=== PATIENT | female | born 1980 | race Caucasian/White ===

== ENCOUNTER 2022-02-21 01:31 | Day surgery (SDC) | payer BC, SELFPAY ==
--- NOTE | 2022-02-14 08:53 | PC.NURSE ---
Report to the Outpatient Waiting Room, entrance under the green pavilion located off [facility], at time _0600 on date __02/21/22 . OR Time: __729 . - You and your visitor will be asked a series of questions to screen for COVID 19 for your protection. - A mask is required within the hospital. Preoperative COVID Testing Requirements: No COVID Test needed if: (proof is required; if not received patient will have Rapid Test prior to entry) - Patient has received COVID Vaccine at least 14 days prior to procedure date or - Patient has positive COVID test result within last 90 days of surgery date. COVID Test needed if above criteria is not met If not COVID vaccinated a COVID test must be conducted within 72 hours of surgery and patient is asked to isolate self from time of testing until procedure. You will go to the [facility] for your COVID testing. The [facility] is located at the corner of [address] [facility]. You will only be called if COVID results are positive and your surgeon may reschedule your elective surgery date. Patients may have clear liquids (water, carbonated beverages, clear teas, apple juice) until 3 hours prior to surgery with a maximum of 20 ounces. - No food from midnight until time of surgery - Infants may have breast milk until 4 hours before surgery, formula 6 hours prior to surgery. - Children will be allowed to drink immediately following surgery. If applicable, please bring a bottle or sippy cup to assist with drinking. Juice, water, soda, and popsicles are readily available. For infants on formula, please bring formula the day of surgery. Pacifiers are allowed. Take the following medications with a SIP of water the morning of surgery: ___INHALER IF NEEDED Medications to discontinue per physician ___MULTI VITAMIN 3 DAYS PRE OP Date to take last dose____02/17/22 Please no make-up, nail cymraes, hairspray, perfume, deodorant, or body powder the day of surgery. No jewelry (including any body piercings) or valuables the day of surgery, leave them at home. Please take a shower or bath the night before, or the morning of, surgery with an antibacterial soap. Wear comfortable, loose fitting clothing. Children are encouraged to wear pajamas. - Jewelry must be removed prior to entering the operating room. Rings and piercings that are not removed may be cut off. - The hospital will not accept responsibility for valuables. - Please leave all valuables, including medications, at home the day of surgery. If you are going home after surgery, a licensed deliver driver must drive you home. - NO public transportation without another adult. - We recommend that an adult stay with you for 24 hours following discharge. - We also recommend that you do not drive, make important decision, drink alcoholic beverages, or take any drugs that were not prescribed by your health care provider for at least 24 hours after your discharge time. For Pediatric surgeries, we recommend two adults accompany the child home (only one inside the building at this time). One visitor will be allowed to accompany the patient into the hospital. Patients visitor will be instructed to remain with patient at all times or leave the building. We will allow the visitor to come back to the postoperative area when patient is ready. Follow any additional instructions given to you from your surgeon. Telephone instructions given to _PATIENT and asked if any additional questions and then verbalized understanding. Patient advised to call surgeon office or pre surgery nurse liaison [phone] if any additional questions.
[2022-02-14 08:54] VITALS: BMI 22.0
--- NOTE | 2022-02-20 13:58 | PM.IMHP ---
H&P: HPI History of Present Illness Date/Time: 02/20/22 13:58 42-year-old female 5 para 4014 presents for permanent sterilization as well as evaluation and treatment for heavy menstrual cycles. States her cycles are monthly 5-7 days in length 3-5 days heavy with clotting cramping significant discomfort during this time as well. No significant discomfort or concerns other than which she is on her menstrual cycle. Also desires permanent sterilization the form bilateral salpingectomy. We have discussed permanence failure rate increased risk of ectopic and regret patient states good understanding and strongly desires to proceed. Chief Complaint: heavy vaginal bleeding Review of Systems Review of Systems: All systems reviewed & are unremarkable except as noted in HPI and below PMFSH Past Medical History Medical History Anemia Asthma Calcification of right breast on mammography Screening mammogram, encounter for Surgical History Surgical History History of hysteroscopy D&C on 10/24/15 History of nasal surgery (~09/17/21) broken nose Family History Family History Grandparent Diabetes mellitus maternal grandmother Family history of glaucoma Hypertension paternal grandfather Family history of lung cancer, Onset Age: 60 Lung cancer maternal grandfather Sibling Family history of mental disorder Social History Social History Smoking status: Never smoker Alcohol intake: never Substance use: never Substance use type: does not use Living arrangements: with family Additional living arrangements comments: spouse 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 Gender identity (if verbalized by the patient): Female Sexual Orientation (if Verbalized by the Patient): Straight or Heterosexual Spiritual care concerns: No Meds Home Medications and Allergies Home Medications Medication Instructions Recorded Confirmed Type albuterol 90 mcg/actuation aerosol 1 mcg INHALATION PRN PRN 12/07/21 02/14/22 History inhaler cetirizine 10 mg capsule 10 mg PO DAILY PRN 12/07/21 02/14/22 History ferrous sulfate 325 mg (65 mg 325 mg PO PRN PRN 12/07/21 02/14/22 History iron) tablet fluticasone propionate 50 1 spray INTRANASAL DAILY 12/07/21 02/14/22 History mcg/actuation nasal spray,suspension multivitamin [Multi-Vitamin] 1 tablet PO DAILY 02/14/22 02/14/22 History Allergies Allergy/AdvReac Type Severity Reaction Status Date / Time acetaminophen [From Tylenol] AdvReac Hives Verified 02/14/22 08:33 ibuprofen AdvReac Hives Verified 02/14/22 08:33 Exam Const: General: cooperative, healthy appearing and comfortable Resp: Effort & Inspection: normal respiratory effort Auscultation: clear to auscultation bilaterally Cardio: Rate: regular rate Rhythm: regular rhythm GI: Auscultation: normal bowel sounds : External Female Exam: normal external appearance Speculum Exam - Vagina: normal appearance of the vagina Speculum Exam - Cervix: normal appearance of the cervix Bimanual exam- vagina & uterus: uterine shape normal Bimanual Exam- Adnexa, other: normal adnexae Assessment and Plan Assessment and plan (1) Menometrorrhagia: Code(s): N92.1 - Excessive and frequent menstruation with irregular cycle Status: Acute Assessment and Plan: hysteroscopy with D&C as well as endometrial ablation (2) Encounter for female sterilization procedure: Code(s): Z30.2 - Encounter for sterilization Status: Acute Assessment and Plan: laparoscopic bilateral salpingectomy
[2022-02-21] VITALS (16 sets, daily range): BP systolic 84–113; BP diastolic 23–54; PULSE 48–90; RESP 12–20; TEMP 36.3–36.7; O2SAT 100; BMI 22.1
--- NOTE | 2022-02-21 06:48 | WPDANESEPPF ---
Anes - Initial Pre Proc Eval Procedure: Operation Date: 02/21/22 07:30 Proposed Procedures p Hysteroscopy Dilation and Curettage with Myosure, Zehar Endometrial Ablation - Alec Astudillo MD s Bilateral Laparoscopic Salpingectomy - Alec Astudillo MD Date/Time: 02/21/22 06:48 Surgeon: Alec Astudillo MD Pre Op Diagnosis: menorrhagia, desires sterilization Patient Data Age: 42 Gender: F Height: 1.73 m Weight: 65.8 kg Allergies Allergy/AdvReac Type Severity Reaction Status Date / Time acetaminophen [From Tylenol] AdvReac Hives Verified 02/21/22 06:57 ibuprofen AdvReac Hives Verified 02/21/22 06:57 Home Medications Medication Instructions Recorded Confirmed Type albuterol 90 mcg/actuation aerosol 1 mcg INHALATION PRN PRN 12/07/21 02/14/22 History inhaler cetirizine 10 mg capsule 10 mg PO DAILY PRN 12/07/21 02/14/22 History ferrous sulfate 325 mg (65 mg 325 mg PO PRN PRN 12/07/21 02/14/22 History iron) tablet fluticasone propionate 50 1 spray INTRANASAL DAILY 12/07/21 02/14/22 History mcg/actuation nasal spray,suspension multivitamin [Multi-Vitamin] 1 tablet PO DAILY 02/14/22 02/14/22 History Patient hx anesthesia problems: none Family hx anesthesia problems: none Results Review: All pre-operative results and documents have been reviewed as part of the pre-operative evaluation. [facility] Past Medical History Medical History (Updated 02/21/22 @ 07:00 by Pedro Mcgill MD) Anemia Anxiety Asthma Calcification of right breast on mammography Screening mammogram, encounter for Surgical History Surgical History History of hysteroscopy D&C on 10/24/15 History of nasal surgery (~09/17/21) broken nose Family History Family History Grandparent Diabetes mellitus maternal grandmother Family history of glaucoma Hypertension paternal grandfather Family history of lung cancer, Onset Age: 60 Lung cancer maternal grandfather Sibling Family history of mental disorder Social History Social History Smoking status: Never smoker Alcohol intake: never Substance use: never Substance use type: does not use Living arrangements: with family Additional living arrangements comments: spouse 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 Gender identity (if verbalized by the patient): Female Sexual Orientation (if Verbalized by the Patient): Straight or Heterosexual Spiritual care concerns: No Anes - Eval Final PreProcedure Day of Procedure 02/21/22 06:48 Patient weight: normal Lungs: clear to auscultation Airway: Mallampati scale class II Neurological: alert and oriented Last oral intake: >/= 8 hours ASA classification: II Emergent: no Anesthetic plan: proceed Anesthesia type and monitoring: general ETT and standard monitoring Results Review: All pre-operative results and documents have been reviewed as part of the pre-operative evaluation. Informed Consent: The patient's anesthetic plan and its attendant risks and benefits were discussed with the patient/family/POA. Questions were solicited and answers provided to the satisfaction of the patient/family/POA.
[2022-02-21] MEDS: LACTATED RINGERS 1,000 ML 30 ML IV CONT ×4 (07:15→13:22)
--- NOTE | 2022-02-21 07:21 | WPDHPUPDATE1 ---
History and Physical Update Update Date/Time: 02/21/22 07:21 History and Physical has been reviewed, including an updated exam of the patient. There are NO changes in the patient's condition. Risks, benefits, and alternatives have been discussed and questions answered. Patient agrees to proceed with procedure.
[2022-02-21 07:24] LABS: Hematocrit 26.7 % (37.0-47.0); Hemoglobin 7.9 g/dL (12.0-15.0)
[2022-02-21] MEDS: ceFAZolin 2 GM/D5W 50 ML 2 GM/50 ML BAG IVPB (07:27)
--- NOTE | 2022-02-21 08:09 | SUR.OPER ---
250ml ns in, 200ml ns out. aware
--- NOTE | 2022-02-21 08:14 | PM.OP ---
Procedure Note - Brief Procedure Note - Brief Date of procedure: 02/21/22 Pre-op diagnosis: menorrhagia, desires sterilization Post-op diagnosis: Same Procedure performed: 1. Hysteroscopy 2. Uterine curettage 3. Endometrial ablation 4. Laparoscopic bilateral salpingectomy Description of procedure: Patient prepped in usual manner for this procedure. Umbilical and lower trocar sites were placed under direct visualization. Mesial salpinx was cauterized and cut using Harmonic scalpel there was no bleeding and tubes were removed without difficulty. Uterus itself without abnormality and ovaries without abnormality. This point the gas was allowed to escape and the skin incisions were approximated using 4-0 Monocryl and skin glue. Attention was then placed to the vagina and the cervix was dilated to allow the hysteroscope to be placed which did reveal thickened tissue but no other specific abnormalities. Curettings were obtained and the endometrial ablation instrument was placed and the uterine cavity. Cavity assessment was performed insert was activated. At the end of the procedure good destruction was noted throughout. Patient was then sent to recovery room in stable condition. Anesthesia: GETA Surgeon: Alec Astudillo MD Drains: No Packing: No Pathology: Yes Complications: No immediate complications Condition: Stable Disposition: PACU Findings: As noted above there were no laparoscopic abnormalities and endometrium thickened but no other anatomic abnormalities appreciated.
[2022-02-21] MEDS: fentaNYL CITRATE INJ (*CRX) 100 MCG/2 ML VIAL 25 MCG IV PUSH (08:42)
[2022-02-21] MEDS: ONDANSETRON INJ 4 MG/2 ML VIAL IV PUSH (09:53)
[2022-02-21] MEDS: diphenhydrAMINE HCl INJ 50 MG/ML VIAL 25 MG IV PUSH (11:05)
[2022-02-21] MEDS: SCOPOLAMINE 1.5 MG PATCH TRANSDERM (11:05)
[2022-02-21] MEDS: FUROSEMIDE INJ 40 MG/4 ML VIAL IV PUSH (13:21)
--- NOTE | 2022-02-21 13:24 | SUR.PHASEII ---
1315notified dr patel that patient tried to void but was unsuccesfu, bladder scanned and had at least 250ml in bladder. he ordered a 1 time dose of 40mg iv furosemide to be given
== END 2022-02-21 14:05 | disposition home or self-care (01) ==
PROVIDERS: PCP Internal Medicine; Visit Provider Obstetrics & Gynecology
PROC: 0U5B8ZZ Destruction of Endometrium, Via Natural or Artificial Opening Endoscopic (ICD-10-PCS; CPT 58563; principal; 2022-02-21 07:30)
PROC: (CPT 49320; 2022-02-21 07:30)
DX: N92.1 Excessive and frequent menstruation with irregular cycle (principal); Z30.2 Encounter for sterilization; J45.909 Unspecified asthma, uncomplicated; D64.9 Anemia, unspecified; Z79.51 Long term (current) use of inhaled steroids
CPT/HCPCS: 58563; 58661; 36415; 85014; 85018; 88302; 88305; A9270; J0690; J1100; J1200; J1940; J2250; J2405; J2704; J2710; J3010; J7030; J7120